=== PATIENT | female | born 1970 | race Two or more races ===

== ENCOUNTER 2017-07-26 12:41 | Emergency (ER) | payer OTHER ==
[2017-07-26 12:49] VITALS: BP 127/76; PULSE 85; TEMP 98.3; BMI 22.8
[2017-07-26 14:07] LABS: BASOPHIL 0.3 % (0-2.0); EOSINOPHIL 0.3 % (0-4.5); MCH 29.2 pg (25.7-33.7); MCHC 33.6 g/dl (32.0-36.0); MEAN PLT VOLUME 9.2 fl (7.5-11.1); NEUTROPHILS 70.4 % (42.8-82.8); PLATELET COUNT 297 K/MM3 (134-434); RDW 13.4 % (11.6-15.6); WHITE BLOOD COUNT 6.9 K/mm3 (4.0-10.0)
--- NOTE | 2017-07-26 14:15 | PDOC ---
History of Present Illness - General Chief Complaint: Blood/Body Fluid Exposure SJR Stated Complaint: EXPOSURE TO BODY FLUIDS Time Seen by Provider: 07/26/17 13:29 History Source: Patient Exam Limitations: No Limitations - History of Present Illness Initial Comments: 07/26/17 14:20 Patient is a 47-year-old female with no past medical history presents emergency department today after being exposed to bodily fluids. 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 She states that a patient coughed bloody sputum into her face today while at therapy. She states that the patient is up-to-date on her vaccinations. Denies fevers, chills, nausea, vomiting, shortness of breath, eye pain, sore throat. UTD on her tetanus shot. Does not want prophylaxis medication at this time. Past History - Past Medical History Allergies/Adverse Reactions: Allergies Allergy/AdvReac Type Severity Reaction Status Date / Time vancomycin Allergy Verified 07/26/17 12:46 Home Medications: Ambulatory Orders NK [No Known Home Medication] 07/26/17 - Suicide/Smoking/Psychosocial Hx Smoking History: Never smoked Review of Systems - Review of Systems Able to Perform ROS?: Yes Comments:: 07/26/17 13:33 CONSTITUTIONAL: Absent: fever, chills, diaphoresis, generalized weakness, malaise, loss of appetite HEENT: Present: sty R eye Absent: rhinorrhea, nasal congestion, throat pain, throat swelling, difficulty swallowing, mouth swelling, ear pain, eye pain, visual Changes CARDIOVASCULAR: Absent: chest pain, loss of consciousness, palpitations, irregular heart rate, peripheral edema RESPIRATORY: Absent: cough, shortness of breath, dyspnea with exertion, orthopnea, wheezing, stridor, hemoptysis GASTROINTESTINAL: Absent: abdominal pain, abdominal distension, nausea, vomiting, diarrhea, constipation, melena, hematochezia GENITOURINARY: Absent: dysuria, frequency, urgency, hesitancy, hematuria, flank pain, genital pain MUSCULOSKELETAL: Absent: myalgia, arthralgia, joint swelling SKIN: Absent: rash, itching, pallor HEMATOLOGIC/IMMUNOLOGIC: Absent: easy bleeding, easy bruising, lymphadenopathy, frequent infections ENDOCRINE: Absent: unexplained weight gain, unexplained weight loss, heat intolerance, cold intolerance NEUROLOGIC: Absent: headache, focal weakness or paresthesias, dizziness, unsteady gait, seizure, mental status changes, bladder or bowel incontinence PSYCHIATRIC: Absent: anxiety, depression, suicidal or homicidal ideation, hallucinations. Is the patient limited Uzbek proficient: No *Physical Exam - Vital Signs Last Vital Signs Temp Pulse Resp BP Pulse Ox 98.3 F 85 18 127/76 100 07/26/17 12:47 07/26/17 12:47 07/26/17 12:47 07/26/17 12:47 07/26/17 12:47 - Physical Exam Comments: 07/26/17 13:41 GENERAL: Well developed, well nourished. Awake and alert. No acute distress. HEENT: Normocephalic, atraumatic. PERRLA, EOMI. No conjunctival pallor. Sclera are non- icteric. Moist mucous membranes. Oropharynx is clear. NECK: Supple. Full ROM. No JVD. Carotid pulses 2+ and symmetric, without bruits. No thyromegaly. No lymphadenopathy. CARDIOVASCULAR: Regular rate and rhythm. No murmurs, rubs, or gallops. Distal pulses are 2+ and symmetric. PULMONARY: No evidence of respiratory distress. Lungs clear to auscultation bilaterally. No wheezing, rales or rhonchi. ABDOMINAL: Soft. Non-tender. Non-distended. No rebound or guarding. No organomegaly. Normoactive bowel sounds. MUSCULOSKELETAL Normal range of motion at all joints. No bony deformities or tenderness. No CVA tenderness. EXTREMITIES: No cyanosis. No clubbing. No edema. No calf tenderness. SKIN: Warm and dry. Normal capillary refill. No rashes. No jaundice. NEUROLOGICAL: Alert, awake, appropriate. Cranial nerves 2-12 intact. No deficits to light touch and temperature in face, upper extremities and lower extremities. No motor deficits in the in face, upper extremities and lower extremities. Normoreflexic in the upper and lower extremities. Normal speech. Toes are down- going bilaterally. Gait is normal without ataxia. PSYCHIATRIC: Cooperative. Good eye contact. Appropriate mood and affect. ED Treatment Course - LABORATORY CBC & Chemistry Diagram: 07/26/17 13:51 07/26/17 13:51 Medical Decision Making - Medical Decision Making 07/26/17 13:42 Pt. is a 47 y/o female who presents to the ED for exposure testing after having bloody sputum coughed into her face. Pt. states she does not want the prophylactic medication. 10/30/17 15:44 HIV testing is negative at this time. Will d/c at this time. Pt. given instructions for f/u testing. Pt. given strict return precautions, especially if she has a cough or fevers. *DC/Admit/Observation/Transfer Diagnosis at time of Disposition: Hx of exposure to hazardous bodily fluids - Discharge Dispostion Disposition: HOME Condition at time of disposition: Good Admit: No - Referrals Referrals: Mason Pryor MD [Staff Physician] - - Patient Instructions Additional Instructions: 07/26/17 1. As discussed, a screening test for the HIV virus was performed today. Your HIV test is Negative (normal). 2. As discussed, if you engaged in high risk-behavior in the three (3) months prior to this test, you could still potentially be at risk and you will need to be re-tested. 3. As discussed, avoid any high risk behavior (such as unprotected sex or needle-sharing) in the future to minimize the chances of jack HIV. Please contact medical records for your hepatitis results. Return to the ED if you have any fevers, chills, flu like symptoms, cough or any changes in your symptoms - Post Discharge Activity Forms/Work/School Notes: Back to Work
[2017-07-26 14:34] LABS: ALK PHOS 112 U/L (45-117); ANION GAP 8 (8-16); BILIRUBIN,TOTAL 0.3 mg/dL (0.2-1.0); CALCIUM 9.2 mg/dL (8.5-10.1); CO2 27 mmol/L (21-32); CREATININE 0.5 mg/dL (0.55-1.02); GLUCOSE,RANDOM 102 mg/dL (74-106); SGOT/AST 12 U/L (15-37); SGPT/ALT 25 U/L (12-78); TOT PROT 8.1 g/dl (6.4-8.2)
[2017-07-26 15:09] LABS: HIV 1 & 2 AB NEGATIVE; HIV 1 AGp24 NEGATIVE
== END 2017-07-26 15:57 | disposition home or self-care (01) ==
LOC: JERFT 12:41
DX: Z77.21 Contact with and (suspected) exposure to potentially hazardous body fluids (principal); X58.XXXA Exposure to other specified factors, initial encounter; Y93.F9 Activity, other caregiving; Y92.230 Patient room in hospital as the place of occurrence of the external cause; Y99.0 Civilian activity done for income or pay
CPT/HCPCS: 36415; 80053; 85025; 86704; 86803; 87340; 87389; 99282-25

== ENCOUNTER 2018-02-03 12:11 | Emergency (ER) | payer BC, OTHER ==
[2018-02-03 13:23] VITALS: BP 128/78; PULSE 65; TEMP 98.4; BMI 23.6
--- NOTE | 2018-02-03 13:40 | PDOC ---
History of Present Illness - General History Source: Patient, Spouse Exam Limitations: No Limitations <Bladimir Rodriguez - Last Filed: 02/03/18 13:40> - History of Present Illness Initial Comments: 02/03/18 17:41 Patient is a 47 year old female with a significant past medical history of panic attacks who presents to the ED with complaints of dizziness that occurs just prior to ED arrival. Patient reports working when she began to experience sudden episode of dizziness. She reports experiencing associated symptoms of heavy breathing, nausea, and tingling. Patient reports after 40 minutes the symptoms began to relieve themself, followed by gradually increased itching sensation. She reports being slightly worried about the experiencing, prompting her to come down to the ED for further evaluation. Denies chest pain, sob. Denies nausea, vomiting. Denies contact with sick individuals, out of state travelling. Denies trauma to affected area. Denies dysuria, hematuria, diarrhea, constipation. Denies fever, chills. Denies change in vision. Denies any other symptoms. Allergies: Penicillin, Vancomycin Social history: Lives with . No smoking. No alcohol. No illicit drugs. Surgical history: None PMD: None <Todd Caputo - Last Filed: 02/03/18 17:41> - General Chief Complaint: Psychiatric Stated Complaint: ANXIETY Time Seen by Provider: 02/03/18 13:06 Past History - Past Medical History COPD: No - Suicide/Smoking/Psychosocial Hx Smoking History: Never smoked Have you smoked in the past 12 months: No Information on smoking cessation initiated: No Hx Alcohol Use: No Drug/Substance Use Hx: No Substance Use Type: None <Bladimir Rodriguez - Last Filed: 02/03/18 13:40> <Todd Caputo - Last Filed: 02/03/18 17:41> - Past Medical History Allergies/Adverse Reactions: Allergies Allergy/AdvReac Type Severity Reaction Status Date / Time Penicillins Allergy Unknown Hives Verified 02/03/18 13:24 vancomycin Allergy Unknown Hives Verified 02/03/18 13:24 Home Medications: Ambulatory Orders NK [No Known Home Medication] 07/26/17 Review of Systems - Review of Systems Able to Perform ROS?: Yes Comments:: 02/03/18 17:41 GENERAL/CONSTITUTIONAL: No fever or chills. No weakness. HEAD, EYES, EARS, NOSE AND THROAT: No change in vision. No ear pain or discharge. No sore throat. CARDIOVASCULAR: No chest pain or shortness of breath. RESPIRATORY: No cough, wheezing, or hemoptysis. GASTROINTESTINAL: +Nausea. No vomiting, diarrhea or constipation. GENITOURINARY: No dysuria, frequency, or change in urination. MUSCULOSKELETAL: No joint or muscle swelling or pain. No neck or back pain. SKIN: No rash NEUROLOGIC: +Dizziness. +tingles.. No headache, vertigo, loss of consciousness, or change in strength/sensation. ENDOCRINE: No increased thirst. No abnormal weight change. HEMATOLOGIC/LYMPHATIC: No anemia, easy bleeding, or history of blood clots. ALLERGIC/IMMUNOLOGIC: No hives or skin allergy. <Todd Caputo - Last Filed: 02/03/18 17:41> *Physical Exam - Vital Signs Last Vital Signs Temp Pulse Resp BP Pulse Ox 98.4 F 65 18 128/78 100 02/03/18 12:50 02/03/18 12:50 02/03/18 12:50 02/03/18 12:50 02/03/18 12:50 <Bladimir Rodriguez - Last Filed: 02/03/18 13:40> - Vital Signs Last Vital Signs Temp Pulse Resp BP Pulse Ox 98.4 F 65 18 128/78 100 02/03/18 12:50 02/03/18 12:50 02/03/18 12:50 02/03/18 12:50 02/03/18 12:50 - Physical Exam Comments: 02/03/18 17:41 GENERAL: Awake, alert, and fully oriented, in no acute distress HEAD: No signs of trauma EYES: PERRLA, EOMI, sclera anicteric, conjunctiva clear ENT: Auricles normal inspection, hearing grossly normal, nares patent, oropharynx clear without exudates. Moist mucosa NECK: Normal ROM, supple, no lymphadenopathy, JVD, or masses LUNGS: Breath sounds equal, clear to auscultation bilaterally. No wheezes, and no crackles HEART: Regular rate and rhythm, normal S1 and S2, no murmurs, rubs or gallops ABDOMEN: Soft, nontender, normoactive bowel sounds. No guarding, no rebound. No masses EXTREMITIES: Normal range of motion, no edema. No clubbing or cyanosis. No cords, erythema, or tenderness NEUROLOGICAL: Cranial nerves II through XII grossly intact. Normal speech, normal gait SKIN: Warm, Dry, normal turgor, no rashes or lesions noted. <Todd Caputo - Last Filed: 02/03/18 17:41> Medical Decision Making - Medical Decision Making 02/03/18 13:36 A portion of this note was documented by scribe services under my direction. I have reviewed the details of the note, within reason, and agree with the documentation with the following case summary and management plan written by me. Patient treated in the ED. Nursing notes are reviewed and incorporated into the medical decision-making. Vital signs reviewed. Peripheral IV access obtained by the nurse, laboratory studies are drawn and sent, reviewed and interpreted by myself. Vital Signs Temp Pulse Resp BP Pulse Ox 98.4 F 65 18 128/78 100 02/03/18 12:50 02/03/18 12:50 02/03/18 12:50 02/03/18 12:50 02/03/18 12:50 47-year-old female with past mental history of panic attack presents with dizziness. The patient states that she woke up well. 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 Patient didn't think it was a panic attack, but reported when she felt calm when arriving to ER, she has no symptoms. The patient denies chest pain or shortness of breath. She and her would like to go home. She declines any further workup and states that now she feels calm, she has no symptoms. Could this have been a panic attack? Given the circumstances and the patient's wishes, I feel that the patient can pursue an outpatient workup. Return precautions given. Pt's agrees with plan. I discussed the physical exam findings, ancillary test results and final diagnoses with the patient. I answered all of the patient's questions. The patient was satisfied with the care received and felt comfortable with the discharge plan and treatment plan. The patient will call their primary care physician within 24 hours to arrange follow-up and will return to the Emergency Department with any new, persistant or worsening symptoms. <Bladimir Rodriguez - Last Filed: 02/03/18 13:40> *DC/Admit/Observation/Transfer - Discharge Dispostion Decision to Admit order: No <Bladimir Rodriguez - Last Filed: 02/03/18 13:40> - Attestations Scribe Attestion: 02/03/18 17:41 Documentation prepared by Todd Caputo, acting as medical communication specialist for Bladimir Rodriguez MD, MD/DO. <Todd Caputo - Last Filed: 02/03/18 17:41> Diagnosis at time of Disposition: Dizziness - Discharge Dispostion Disposition: HOME Condition at time of disposition: Good - Patient Instructions Printed Discharge Instructions: DI for Dizziness-Nonvertigo Additional Instructions: Please follow up with your doctor tomorrow. If you start to feel similar symptoms, please return to the ER for further evaluation.
== END 2018-02-03 13:50 | disposition home or self-care (01) ==
LOC: JER 12:11
DX: F41.0 Panic disorder [episodic paroxysmal anxiety] (principal)
CPT/HCPCS: 99282-25